=== PATIENT | female | born 1945 | race Caucasian/White ===

== ENCOUNTER 2016-09-18 11:42 | Emergency (ER) | payer MEDICARE, OTHER ==
[2016-09-18] MEDS ORDERED: Pantoprazole 40 MG Vial IVPUSH ONE (12:05)
[2016-09-18] MEDS ORDERED: Ondansetron 4 MG/2 ML SDV IVPUSH PRN (12:05)
[2016-09-18] MEDS ORDERED: Lactated Ringers 1,000 ML IV SCH (12:15)
--- NOTE | 2016-09-18 12:17 | EDM.PDOC ---
ED HPI GENERAL MEDICAL PROBLEM - General Chief Complaint: General Stated Complaint: nausea, dry heaves, headache Time Seen by Provider: 09/18/16 11:59 Source of Information: Reports: Patient, EMS History Limitations: Reports: No limitations - History of Present Illness INITIAL COMMENTS - FREE TEXT/NARRATIVE: Patient presents to the ER with complaints of generalized malaise, headache, sore throat and heartburn. Patient has been feeling weak. Feels she is dehydrated. Had influenza in August and hasn't felt good since then. She denies fever today. Has had dry heaves but no vomiting. No appetite. Was in to see Dr. Ayon yesterday with same complaints only headache has gotten worse. She did have labs and chest xray and EKG yesterday. Was told URI and given Rocephin and Depo Medrol. Started on a Zpack. Did take that on an empty stomach today and wonders if that caused the nausea. Onset: gradual Duration: Week(s): Location: Reports: head, chest, abdomen Quality: Reports: Ache Severity: severe Improves with: Reports: Rest Associated Symptoms: Reports: cough, headaches, loss of appetite, nausea/ vomiting, weakness. Denies: confusion, chest pain, shortness of breath Treatments TARGETING ACQUISITION OFFICER: Reports: Acetaminophen, Other medication(s) Other Treatments TARGETING ACQUISITION OFFICER: injections and zithromax Headache Pain Score (Numeric/FACES): 10 - Related Data Allergies Allergy/AdvReac Type Severity Reaction Status Date / Time hydrocodone Allergy Nausea Verified 09/18/16 11:48 iopamidol [From Isovue-M] Allergy Rash Verified 09/18/16 11:48 lansoprazole Allergy Hypertensio Verified 09/18/16 11:48 n Sulfa (Sulfonamide Allergy Rash Verified 09/18/16 11:48 Antibiotics) Home Meds: Home Meds Aspirin [Ecotrin] 81 mg PO DAILY 02/14/14 [History] Omeprazole [priLOSEC OTC] 20 mg PO DAILY 07/21/14 [History] Azithromycin [Zithromax] 250 mg PO DAILY 09/18/16 [History] Levothyroxine Sodium [Synthroid] 125 mcg PO DAILY 09/18/16 [History] Past Medical History - History Comment History Comment: see nurses notes for PMH Social & Family History - Tobacco Use Smoking Status *Q: Never Smoker Second Hand Smoke Exposure: Yes - Alcohol Use Days Per Week of Alcohol Use: 0 - Recreational Drug Use Recreational Drug Use: No ED ROS GENERAL - Review of Systems Review Of Systems: See Below Constitutional: Reports: chills, malaise, weakness, fatigue, decreased appetite. Denies: fever HEENT: Reports: Rhinitis, Throat pain. Denies: Ear discharge, Ear pain, Sinus problem, Vertigo Respiratory: Reports: Cough. Denies: Shortness of Breath, Wheezing Cardiovascular: Denies: Chest pain, Edema, Lightheadedness Endocrine: Reports: fatigue GI/Abdominal: Reports: Nausea. Denies: Abdominal pain, Constipation, Diarrhea, Vomiting : Reports: no symptoms Musculoskeletal: Reports: no symptoms Skin: Reports: no symptoms Neurological: Reports: Headache Psychiatric: Reports: No symptoms ED EXAM, GENERAL - Physical Exam Exam: See Below Exam Limited By: No limitations General Appearance: alert, WD/WN, no apparent distress Ears: normal external exam, normal TMs Nose: normal inspection, normal mucosa, no blood Throat/Mouth: Normal inspection, Normal oropharynx Head: normocephalic Neck: normal inspection, supple, non-tender Respiratory/Chest: no respiratory distress, lungs clear, normal breath sounds Cardiovascular: regular rate, rhythm, no edema GI/Abdominal: normal bowel sounds, soft, non tender Extremities: normal inspection, normal capillary refill Neurological: alert, oriented Psychiatric: normal affect, normal mood Skin Exam: Warm, Dry Course - Vital Signs Last Recorded V/S: Last Vital Signs Temp 98.8 F 09/18/16 15:00 Pulse 76 09/18/16 15:00 Resp 20 09/18/16 15:00 BP 142/71 H 09/18/16 15:00 Pulse Ox 96 09/18/16 15:00 - Orders/Labs/Meds Orders: Active Orders 24 hr Category Date Time Status Lactated Ringers [Ringers, Lactated] 1,000 ml Med 09/18/16 12:15 Active IV ASDIRECTED Ondansetron [Zofran] Med 09/18/16 12:05 Active 4 mg IVPUSH Q6H PRN Medication Orders Lactated Ringer's (Ringers, Lactated) 1,000 mls @ 250 mls/hr IV ASDIRECTED NAT Last Admin: 09/18/16 12:27 Dose: 250 mls/hr Ondansetron HCl (Zofran) 4 mg IVPUSH Q6H PRN PRN Reason: Nausea Last Admin: 09/18/16 12:22 Dose: 4 mg Labs: Laboratory Tests 09/18/16 09/18/16 Range/Units 12:07 12:15 WBC 9.9 (5.0-10.0) 10^3/uL RBC 4.17 (4.00-5.50) 10^6/uL Hgb 13.0 (12.0-16.0) g/dL Hct 39.4 (37.0-47.0) % MCV 94.5 H (82.0-94.0) fL MCH 31.2 (27.0-32.0) pg MCHC 33.0 (33.0-38.0) g/dL RDW Coeff of Susan 13.0 (11.0-15.0) % Plt Count 315 (150-400) 10^3/uL Neut % (Auto) 82.5 (35-85) % Lymph % (Auto) 9.1 L (10-55) % [place] % (Auto) 8.4 (0-16) % Eos % (Auto) 0 (0-5) % Baso % (Auto) 0 (0-3) % Neut # 8.21 H (1.80-7.00) 10^3/uL Lymph # 0.90 L (1.00-4.80) 10^3/uL [place] # 0.83 H (0.00-0.80) 10^3/uL Eos # 0.00 (0.00-0.45) 10^3/uL Baso # 0.00 10^3/uL Sodium 140 (136-145) mEq/L Potassium 3.7 (3.5-5.0) mEq/L Chloride 106 (98-106) mEq/L Carbon Dioxide 21 (21-32) mmol/L BUN 23 H (7-18) mg/dL Creatinine 0.7 (0.6-1.0) mg/dL Est Cr Clr Drug Dosing 54.01 mL/min Estimated GFR (MDRD) > 60 (>=60) mL/min Glucose 133 H D (75-99) mg/dL Calcium 9.0 (8.4-10.1) mg/dL C-Reactive Protein 1.8 H (0.2-0.8) mg/dL Meds: Medications Generic Name Dose Route Start Last Admin Trade Name Freq PRN Reason Stop Dose Admin Lactated Ringer's 1,000 mls @ 250 mls/hr 09/18/16 12:15 09/18/16 12:27 Ringers, Lactated IV 250 mls/hr ASDIRECTED NAT Administration Ondansetron HCl 4 mg 09/18/16 12:05 09/18/16 12:22 Zofran IVPUSH 4 mg Q6H PRN Administration Nausea Discontinued Medications Generic Name Dose Route Start Last Admin Trade Name Freq PRN Reason Stop Dose Admin Acetaminophen 650 mg 09/18/16 12:30 09/18/16 12:37 Tylenol PO 09/18/16 12:31 650 mg NOW ONE Administration Ketorolac Tromethamine 30 mg 09/18/16 12:52 09/18/16 12:55 Toradol IVPUSH 09/18/16 12:53 30 mg ONETIME ONE Administration Pantoprazole Sodium 40 mg 09/18/16 12:05 09/18/16 12:18 Protonix Iv IVPUSH 09/18/16 12:06 40 mg ONETIME ONE Administration - Re-Assessments/Exams Free Text/Narrative Re-Assessment/Exam: 09/18/16 12:45 Patient's nausea is improved. However, headache persists. Will given IV Toradol, IV fluids over the next few hours and possibly discharge home at that time. Reassures that labs are improved from yesterday. 09/18/16 15:24 Patient is feeling better. Departure - Departure Time of Disposition: 15:25 Disposition: Home, Self-Care 01 Condition: fair Clinical Impression: URI (upper respiratory infection) Forms: ED Department Discharge Additional Instructions: 1. Rest 2. Push fluids 3. Finish Zithromax 4. Tylenol or ibuprofen for fever or discomfort. 5. Follow up if any ongoing concern - My Orders Last 24 Hours: My Active Orders 09/18/16 12:05 Ondansetron [Zofran] 4 mg IVPUSH Q6H PRN 09/18/16 12:15 Lactated Ringers [Ringers, Lactated] 1,000 ml IV ASDIRECTED - Assessment/Plan Last 24 Hours: My Active Orders 09/18/16 12:05 Ondansetron [Zofran] 4 mg IVPUSH Q6H PRN 09/18/16 12:15 Lactated Ringers [Ringers, Lactated] 1,000 ml IV ASDIRECTED
[2016-09-18 12:29] LABS: CHLORIDE,CL 106 mEq/L (98-106); SODIUM,NA 140 mEq/L (136-145)
[2016-09-18] MEDS ORDERED: Acetaminophen 325 MG Tab PO ONE (12:30)
[2016-09-18] MEDS ORDERED: Ketorolac 30 MG/ML SDV IVPUSH ONE (12:52)
[2016-09-18 15:05] VITALS: BP 142/71
== END 2016-09-18 15:45 | disposition home or self-care (01) ==
LOC: CC.ED 11:42
DX: J06.9 Acute upper respiratory infection, unspecified (principal); Z79.899 Other long term (current) drug therapy; Z88.2 Allergy status to sulfonamides; Z88.8 Allergy status to other drugs, medicaments and biological substances
CPT/HCPCS: 36415; 80048; 85025; 86140; 96361; 96374; 96375; 99284; A9270; C9113; J1885; J2405; J7120

== ENCOUNTER → 2016-10-25 | Day surgery (SDC) | payer MEDICARE, OTHER ==
[~2016-10-25] MED LIST: Lactated Ringers 1,000 ML IV SCH; Propofol 200 MG/20 ML SDV IV ONE
[2016-10-25 11:26] VITALS: BP 160/71
--- NOTE | 2016-10-28 06:59 | OR ---
DATE OF OPERATION: 10/25/2016 PREOPERATIVE DIAGNOSIS: EPIGASTRIC PAIN, GASTROESOPHAGEAL REFLUX DISEASE. POSTOPERATIVE DIAGNOSIS: EPIGASTRIC PAIN, GASTROESOPHAGEAL REFLUX DISEASE. SURGEON: Adolph Ayon MD PROCEDURE: EGD WITH BIOPSIES X4, JAYSON. ANESTHESIA: [employer] OFFICER due to chronic reflux and anxiety. COMPLICATIONS: None. FINDINGS: 1. Full-length EGD. 2. Diffuse gastritis with multiple erosions. RECOMMENDATIONS: The patient will be continued on proton pump therapy and Carafate. INDICATIONS: The patient was seen by Dr. Zafar for epigastric pain and GERD. He sent her for EGD. DESCRIPTION OF PROCEDURE: The patient was prepped and draped, placed in the left lateral decubitus position. A lubricated Olympus gastroscope inserted and easily advanced into the esophagus. Esophageal lining was benign in its entire course. The Z-line was crisp and sharp at 39 cm. No distal esophagitis, stricturing, or ulcerations were seen. No Perla's changes seen. No obvious reflux. The scope was advanced into the stomach through the pylorus and into the third portion of the duodenum. The duodenal bulb, second and third portion of duodenum were unremarkable. The scope was brought back into the stomach and retroflexed. The upper fundus did show some signs of chronic gastritis. Cardia portion of the stomach was benign. Upon straightening, thorough evaluation of the rest of the fundus and antrum showed diffuse gastritis, most particularly in the peripyloric area of the antrum. Two biopsies of the antrum and two of the fundus were taken along with an antral CLOtest. There were no other polyps, masses, ulcerations, or bleeding sites. Air was suctioned, and the scope removed without complication. ELVIN/BRENDA /[id number]
== END ==
LOC: CC.SDS 09:30
PROVIDERS: ATTEND Family Medicine
DX: K29.50 Unspecified chronic gastritis without bleeding (principal); K31.89 Other diseases of stomach and duodenum; I10 Essential (primary) hypertension; K21.9 Gastro-esophageal reflux disease without esophagitis; Z88.2 Allergy status to sulfonamides; Z88.8 Allergy status to other drugs, medicaments and biological substances; Z79.82 Long term (current) use of aspirin; Z79.899 Other long term (current) drug therapy; E87.6 Hypokalemia; Z90.710 Acquired absence of both cervix and uterus; Z98.890 Other specified postprocedural states
CPT/HCPCS: 43239; 87081; 88305; 88342; J2704; J7120; 00740

== ENCOUNTER 2017-04-07 14:46 | Observation (INO) | payer MEDICARE, OTHER ==
[2017-04-07] MEDS ORDERED: Temazepam 15 MG Cap PO PRN (14:56)
[2017-04-07] MEDS ORDERED: Sodium Chloride 0.9% 10 ML Syringe FLUSH PRN (14:56)
[2017-04-07] MEDS ORDERED: Acetaminophen 325 MG Tab PO PRN (14:56)
[2017-04-07] MEDS ORDERED: Pantoprazole 40 MG Vial IVPUSH ONE (14:56)
[2017-04-07 15:45] LABS: CHLORIDE,CL 106 mEq/L (98-106); SODIUM,NA 141 mEq/L (136-145)
[2017-04-07] MEDS ORDERED: Aspirin 325 MG Tab PO PRN (19:55)
[2017-04-08] MEDS ORDERED: LEVOTHYROXINE 112 MCG PO SCH (07:00)
[2017-04-08] MEDS ORDERED: Enoxaparin 40 MG/0.4 ML Syringe SUBCUT SCH (08:00)
[2017-04-08] MEDS ORDERED: Aspirin 325 MG Tab.EC PO PRN (08:15)
[2017-04-08] MEDS ORDERED: Iopamidol 755 Mg/ML 100 ML Bottle IVPUSH ONE (08:37)
--- NOTE | 2017-04-08 11:41 | PCM.DCSUM1 ---
Discharge Summary - Hospital Course Free Text/Narrative:: Patient was admitted yesterday with anterior chest pain. Had a near-syncopal episode 2 weeks ago. Admits had been feeling increased fatigue, feels she has been losing hair and has lost weight. 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 Does not feel that has caused that much stress in her life but also feels her heartburn has been worse. Admitted for cardiac work up. - Discharge Data Discharge Date: 04/08/17 Discharge Disposition: Home, Self-Care 01 Condition: Good - Patient Summary/Data Complications: none Hospital Course: Patient continues to have left sided abdominal discomfort. Feels it is better after belching and "probably related to her GERD". Has been taking Protonix at home. Troponin and EKG have remained normal, CK and LDH mildly elevated. Is tender with palpation to left chest wall. D-Dimer was slightly elevated so a CT scan of her chest was done and ruled out a PE. Does have small nodules in her lung that will need to be followed. Dr. ayon aware. Will discharge home on her Protonix and add Carafate. Follow up with Dr. Ayon next week. - Patient Instructions Diet: Regular Diet as Tolerated Activity: As Tolerated - Discharge Plan Prescriptions/Med Rec: Pantoprazole [ProTONIX] 40 mg PO ACBREAKFAST #30 tab.cr Sucralfate [Carafate] 1 gm PO TIDAC #42 tablet Home Medications: Home Meds Levothyroxine Sodium [Synthroid] 112 mcg PO ACBREAKFAST 04/07/17 [History] Pantoprazole [ProTONIX] 40 mg PO ACBREAKFAST #30 tab.cr 04/08/17 [Rx] Sucralfate [Carafate] 1 gm PO TIDAC #42 tablet 04/08/17 [Rx] Referrals: Adolph Ayon MD [Primary Care Provider] - (Follow up next week with Dr. Ayon ) - Discharge Summary/Plan Comment DC Time >30 min.: No - General Info Date of Service: 04/08/17 Admission Dx/Problem (Free Text: Chest Pain Functional Status: Reports: Pain Controlled, Tolerating Diet, Ambulating - Review of Systems General: Denies: Fever, Weakness, Fatigue HEENT: Reports: No Symptoms Pulmonary: Reports: Pleuritic Chest Pain, Cough. Denies: Shortness of Breath, Wheezing Cardiovascular: Denies: Palpitations, Edema, Lightheadedness Gastrointestinal: Reports: Other (reflux/heartburn). Denies: Abdominal Pain, Nausea, Vomiting Genitourinary: Reports: No Symptoms Musculoskeletal: Reports: No Symptoms Skin: Reports: No Symptoms Neurological: Reports: No Symptoms - Patient Data Vitals - Most Recent: Last Vital Signs Temp 97.2 F 04/08/17 08:00 Pulse 58 L 04/08/17 08:00 Resp 16 04/08/17 08:00 BP 150/67 H 04/08/17 08:00 Pulse Ox 100 04/08/17 08:00 Weight - Most Recent: 153 lb Lab Results - Last 24 hrs: Laboratory Results - last 24 hr 04/07/17 04/07/17 04/07/17 Range/Units 14:56 15:31 15:31 WBC 7.9 (5.0-10.0) 10^3/uL RBC 4.00 (4.00-5.50) 10^6/uL Hgb 12.2 (12.0-16.0) g/dL Hct 38.2 (37.0-47.0) % MCV 95.5 H (82.0-94.0) fL MCH 30.5 (27.0-32.0) pg MCHC 31.9 L (33.0-38.0) g/dL RDW Coeff of Susan 13.6 (11.0-15.0) % Plt Count 318 (150-400) 10^3/uL Neut % (Auto) 63.8 (35-85) % Lymph % (Auto) 23.6 (10-55) % [place] % (Auto) 9.6 (0-16) % Eos % (Auto) 2.7 (0-5) % Baso % (Auto) 0.3 (0-3) % Neut # (Auto) 5.06 (1.80-7.00) 10^3/uL Lymph # (Auto) 1.87 (1.00-4.80) 10^3/uL [place] # (Auto) 0.76 (0.00-0.80) 10^3/uL Eos # (Auto) 0.21 (0.00-0.45) 10^3/uL Baso # (Auto) 0.02 10^3/uL D-Dimer, Quantitative 0.55 H (0.00-0.50) Sodium 141 (136-145) mEq/L Potassium 3.7 (3.5-5.0) mEq/L Chloride 106 (98-106) mEq/L Carbon Dioxide 25 (21-32) mmol/L BUN 19 H (7-18) mg/dL Creatinine 0.7 (0.6-1.0) mg/dL Est Cr Clr Drug Dosing 53.26 mL/min Estimated GFR (MDRD) > 60 (>=60) mL/min Glucose 91 (75-99) mg/dL Calcium 8.9 (8.4-10.1) mg/dL Lactate Dehydrogenase (100-190) U/L Creatine Kinase (21-215) U/L Troponin I < 0.017 (0.00-0.06) ng/mL 04/08/17 Range/Units 08:18 WBC (5.0-10.0) 10^3/uL RBC (4.00-5.50) 10^6/uL Hgb (12.0-16.0) g/dL Hct (37.0-47.0) % MCV (82.0-94.0) fL MCH (27.0-32.0) pg MCHC (33.0-38.0) g/dL RDW Coeff of Susan (11.0-15.0) % Plt Count (150-400) 10^3/uL Neut % (Auto) (35-85) % Lymph % (Auto) (10-55) % [place] % (Auto) (0-16) % Eos % (Auto) (0-5) % Baso % (Auto) (0-3) % Neut # (Auto) (1.80-7.00) 10^3/uL Lymph # (Auto) (1.00-4.80) 10^3/uL [place] # (Auto) (0.00-0.80) 10^3/uL Eos # (Auto) (0.00-0.45) 10^3/uL Baso # (Auto) 10^3/uL D-Dimer, Quantitative (0.00-0.50) Sodium (136-145) mEq/L Potassium (3.5-5.0) mEq/L Chloride (98-106) mEq/L Carbon Dioxide (21-32) mmol/L BUN (7-18) mg/dL Creatinine (0.6-1.0) mg/dL Est Cr Clr Drug Dosing mL/min Estimated GFR (MDRD) (>=60) mL/min Glucose (75-99) mg/dL Calcium (8.4-10.1) mg/dL Lactate Dehydrogenase 210 H (100-190) U/L Creatine Kinase 245 H (21-215) U/L Troponin I < 0.017 (0.00-0.06) ng/mL Med Orders - Current: Current Medications Acetaminophen (Tylenol) 650 mg PO Q4H PRN PRN Reason: Pain (Mild 1-3)/fever Aspirin (Ecotrin) 650 mg PO Q4H PRN PRN Reason: Headache/Pain Enoxaparin Sodium (Lovenox) 40 mg SUBCUT Q24H [facility] Last Admin: 04/08/17 09:20 Dose: Not Given Levothyroxine Sodium (Levothyroxine) 112 mcg PO ACBREAKFAST [facility] Last Admin: 04/08/17 06:12 Dose: 112 mcg Sodium Chloride (Saline Flush) 10 ml FLUSH ASDIRECTED PRN PRN Reason: Keep Vein Open Temazepam (Restoril) 15 mg PO BEDTIME PRN PRN Reason: Sleep Discontinued Medications Aspirin (Aspirin) 650 mg PO Q4H PRN PRN Reason: Headache/Pain Last Admin: 04/07/17 20:14 Dose: 650 mg Iopamidol (Isovue-370 (76%)) 100 ml IVPUSH ONETIME ONE Stop: 04/08/17 08:38 Last Admin: 04/08/17 09:21 Dose: Not Given Pantoprazole Sodium (Protonix Iv) 40 mg IVPUSH ONETIME ONE Stop: 04/07/17 14:57 Last Admin: 04/07/17 16:20 Dose: 40 mg - Exam General: Reports: Alert, Oriented HEENT: Reports: Mucous Membr. Moist/[place] Neck: Reports: Supple Lungs: Reports: Clear to Auscultation, Normal Respiratory Effort Cardiovascular: Reports: Regular Rate, Regular Rhythm GI/Abdominal Exam: Normal Bowel Sounds, Soft, Non-Tender Extremities: Other (tender to anterior chest wall with palpation) Skin: Reports: Warm, Dry Neurological: Reports: No New Focal Deficit Psy/Mental Status: Reports: Alert, Normal Affect, Normal Mood *Q Meaningful Use (DIS) - VTE *Q VTE Criteria *Q: - Stroke *Q Stroke Criteria *Q: - AMI *Q AMI Criteria *Q:
[2017-04-08 12:08] VITALS: BP 144/66
== END 2017-04-08 12:15 | disposition home or self-care (01) ==
LOC: CC.MS 14:46 → UNDOADMOB 14:46 → CC.MS 14:56
PROVIDERS: ADMIT Family Medicine; ATTEND Family Medicine
DX: R10.9 Unspecified abdominal pain (principal); K21.9 Gastro-esophageal reflux disease without esophagitis; E03.9 Hypothyroidism, unspecified; Z79.82 Long term (current) use of aspirin; Z79.899 Other long term (current) drug therapy; Z88.2 Allergy status to sulfonamides; Z88.8 Allergy status to other drugs, medicaments and biological substances; Z90.710 Acquired absence of both cervix and uterus; Z98.890 Other specified postprocedural states
CPT/HCPCS: 36415; 71020; 71275; 80048; 82550; 83615; 84484; 85025; 85379; 93005; 96374; A9270; C9113; G0378; Q9967; 93010; 99217; 99220

== ENCOUNTER → 2017-11-27 | Day surgery (SDC) | payer MEDICARE, OTHER ==
[~2017-11-27] MED LIST changes: +Lidocaine 4% Top Soln 5 ML LTA Syringe ONE; +Lidocaine 4% Top Soln 5 ML LTA Syringe TOP ONE; +Meperidine PF 50 MG/ML Syringe IV ONE; +Meperidine PF 50 MG/ML Syringe ONE; +Midazolam 1 MG/ML 2 ML SDV ONE; -Propofol 200 MG/20 ML SDV IV ONE
[2017-11-27 13:42] VITALS: BP 131/70
--- NOTE | 2017-11-27 16:39 | OR ---
DATE OF OPERATION: 11/27/2017 PREOPERATIVE DIAGNOSIS: 1. GASTROESOPHAGEAL REFLUX DISEASE. 2. EPIGASTRIC PAIN. POSTOPERATIVE DIAGNOSIS: 1. GASTROESOPHAGEAL REFLUX DISEASE. 2. EPIGASTRIC PAIN. SURGEON: Adolph Ayon MD PROCEDURE PERFORMED: EGD with biopsies x3, JAYSON. ANESTHESIA: Conscious sedation. COMPLICATIONS: None. SPECIMEN: 1. Antral JAYSON. 2. Antral biopsy x1. 3. Upper fundal biopsy x2. FINDINGS: 1. Full-length EGD. 2. Heel ulcer, distal antrum in the german pyloric region. 3. Hemorrhagic gastritis acute, upper fundus, and cardia. 4. No hiatal hernia or spontaneous reflux visualized and no distal esophagitis, stricturing, ulceration, or Perla's changes. RECOMMENDATIONS: Medical followup with Dr. Zafar. INDICATIONS: The patient has a history of chronic GERD and dyspepsia. Dr. Zafar sent her for EGD. DESCRIPTION OF PROCEDURE: The patient was prepped and draped, placed in left lateral decubitus position. A lubricated Olympus gastroscope was inserted over a bit and advanced to cricopharyngeus area and easily intubated into the esophagus. Esophageal lining was benign in its entire course. The Z-line was crisp and sharp around 39 cm. There was no hernia. No distal esophagitis, stricturing, ulceration, or Perla's changes. No spontaneous reflux seen. The scope was advanced into the stomach through the pylorus and into the second portion of the duodenum. This and the duodenal bulb were benign. The scope was brought back into the stomach and retroflexed. The upper fundus and cardia had marked hemorrhagic gastritis acute in nature. Two biopsies of the most affected area were taken. No gross ulcerations were seen. Upon straightening, the rest of the fundus and antrum were evaluated, the distal fundus and antrum were essentially benign and the peripyloric area looks like the patient has a healed ulcer there with a little bit of scar down tissue. We did a biopsy that area and a JAYSON. No other polyps, masses, or lesions were seen. Air was suctioned. Scope was removed without complication. ELVIN/BRENDA /[id number]
== END ==
LOC: CC.SDS 11:42
PROVIDERS: ATTEND Family Medicine
DX: K21.9 Gastro-esophageal reflux disease without esophagitis (principal); K29.01 Acute gastritis with bleeding; K29.50 Unspecified chronic gastritis without bleeding; B96.81 Helicobacter pylori [H. pylori] as the cause of diseases classified elsewhere; G47.00 Insomnia, unspecified; Z88.8 Allergy status to other drugs, medicaments and biological substances; Z88.2 Allergy status to sulfonamides; Z88.5 Allergy status to narcotic agent; Z79.82 Long term (current) use of aspirin; Z79.899 Other long term (current) drug therapy
CPT/HCPCS: 87081; A9270-GY; J2175; J7120

== ENCOUNTER 2021-04-04 22:45 | Emergency (ER) | payer MEDICARE, OTHER ==
[2021-04-04] MEDS ORDERED: cloNIDine 0.1 MG Tab PO SCH (23:30)
[2021-04-04 23:34] VITALS: PULSE 88
[2021-04-04 23:37] LABS: CHLORIDE,CL 105 mEq/L (98-106); SODIUM,NA 140 mEq/L (136-145)
--- NOTE | 2021-04-04 23:47 | EDM.PDOC ---
ED HPI GENERAL MEDICAL PROBLEM - General Chief Complaint: General Stated Complaint: high blood pressure Time Seen by Provider: 04/04/21 23:15 Source of Information: Reports: Patient History Limitations: Reports: No Limitations - History of Present Illness INITIAL COMMENTS - FREE TEXT/NARRATIVE: Milla is a 76 year old female who presents to ER with complaints of a headache and high blood pressure. Has had a headache off and on throughout the day. [place] somewhat "whoozy in the head" so took her blood pressure and was 213 systolic at home. Admits has been having issues with her blood pressure since February. Was placed on a blood pressure med, doesn't recall name, but was not controlling it so was switched to Lisinopril and it has been better. Dr. 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 Is currently taking Synthroid 88 mcg daily. Denies any chest pain. No shortness of breath, cough or head congestion. No nausea/vomiting or abdominal pain. No edema. No fever. Denies urinary complaints. Onset: Today Duration: Hour(s):, Waxing/Waning Location: Reports: Head Quality: Reports: Ache Severity: Moderate Improves with: Reports: Medication, Rest Associated Symptoms: Reports: Headaches. 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 Frontal Headache Pain Score (Numeric/FACES): 6 - Related Data Allergies Allergy/AdvReac Type Severity Reaction Status Date / Time lansoprazole Allergy Hypertensio Verified 04/04/21 23:37 n Sulfa (Sulfonamide Allergy Rash Verified 04/04/21 23:37 Antibiotics) hydrocodone AdvReac Nausea Verified 04/04/21 23:37 Home Meds: Home Meds Aspirin [Adult Aspirin] 81 mg PO DAILY 11/21/17 [History] Levothyroxine [Synthroid] 88 mcg PO ACBREAKFAST 04/04/21 [History] lisinopriL [Lisinopril] 10 mg PO DAILY 04/04/21 [History] Past Medical History HEENT History: Reports: Allergic Rhinitis, Impaired Vision Cardiovascular History: Reports: Other (See Below) Other Cardiovascular History: venous insufficiency Respiratory History: Reports: Bronchitis, Recurrent Gastrointestinal History: Reports: GERD REPLACER History: Reports: Musculoskeletal History: Reports: Back Pain, Chronic, Osteoarthritis, Other (See Below) Other Musculoskeletal History: Bursitis Psychiatric History: Reports: Anxiety Endocrine/Metabolic History: Reports: Hypothyroidism - Infectious Disease History Infectious Disease History: Reports: Chicken Pox, Measles - Past Surgical History HEENT Surgical History: Reports: Tonsillectomy GI Surgical History: Reports: Hernia Repair/Other Female Surgical History: Reports: Hysterectomy Musculoskeletal Surgical History: Reports: Shoulder Surgery - History Comment History Comment: see nurses notes for PMH Social & Family History - Family History Family Medical History: No Pertinent Family History - Tobacco Use Tobacco Use Status *Q: Never Tobacco User Second Hand Smoke Exposure: No - Caffeine Use Caffeine Use: Reports: None - Recreational Drug Use Recreational Drug Use: No ED ROS GENERAL - Review of Systems Review Of Systems: See Below Constitutional: Denies: Fever, Chills, Malaise, Weakness, Fatigue, Decreased Appetite HEENT: Denies: Ear Pain, Rhinitis, Sinus Problem, Throat Pain, Vision Change Respiratory: Denies: Shortness of Breath, Cough Cardiovascular: Denies: Chest Pain, Edema, Lightheadedness Endocrine: Denies: Fatigue GI/Abdominal: Denies: Abdominal Pain, Constipation, Diarrhea, Nausea, Vomiting : Denies: Dysuria Musculoskeletal: Reports: No Symptoms Skin: Reports: No Symptoms Neurological: Reports: Headache ED EXAM, GENERAL - Physical Exam Exam: See Below Exam Limited By: No Limitations General Appearance: Alert, WD/WN, No Apparent Distress Ears: Normal External Exam, Normal TMs Nose: Normal Inspection, Normal Mucosa, No Blood Throat/Mouth: Normal Inspection, Normal Oropharynx Head: Normocephalic Neck: Normal Inspection, Supple, Non-Tender, Full Range of Motion Respiratory/Chest: No Respiratory Distress, Lungs Clear, Normal Breath Sounds Cardiovascular: Regular Rate, Rhythm, No Edema GI/Abdominal: Normal Bowel Sounds, Soft, Non-Tender Extremities: Normal Inspection, No Pedal Edema Neurological: Alert, Oriented, CN II-XII Intact, Normal Cognition, Normal Gait, Normal Reflexes, No Motor/Sensory Deficits Skin Exam: Warm, Dry #1 Interpretation EKG Date: 04/04/21 Rhythm: NSR [place]: Normal P-Wave: Enlarged QRS: Normal ST-T: Normal QT: Normal Course - Vital Signs Last Recorded V/S: Last Vital Signs Temp 96.4 F L 04/04/21 22:55 Pulse 88 04/04/21 23:34 Resp 20 04/04/21 23:34 BP 208/84 H 04/04/21 23:34 Pulse Ox 95 04/04/21 23:34 - Orders/Labs/Meds Orders: Active Orders 24 hr Category Date Time Status cloNIDine [Catapres] Med 04/04/21 23:30 Active 0.1 mg PO DAILY Medication Orders Clonidine HCl (Clonidine 0.1 Mg Tab) 0.1 mg PO DAILY NAT Last Admin: 04/04/21 23:33 Dose: 0.1 mg Documented by: SHAMA Labs: Laboratory Tests 04/04/21 04/04/21 04/04/21 Range/Units 23:19 23:19 23:19 WBC 9.3 (4.0-11.0) 10^3/uL RBC 4.01 (4.00-5.50) x10^6/uL Hgb 12.9 (12.0-16.0) g/dL Hct 39.3 (37.0-47.0) % MCV 98.0 H (83.0-97.0) fL MCH 32.2 H (27.0-32.0) pg MCHC 32.8 (32.0-36.0) g/dL RDW Coeff of Susan 13.1 (11.0-15.0) % Plt Count 280 (150-400) 10^3/uL Immature Gran % (Auto) 0.4 (0.0-4.9) % Neut % (Auto) 65.2 (41-71) % Lymph % (Auto) 21.0 L (24-44) % [place] % (Auto) 10.0 (0-10) % Eos % (Auto) 3.1 (0-6) % Baso % (Auto) 0.3 (0-1) % Neut # (Auto) 6.05 (1.80-8.00) x10^3/uL Lymph # (Auto) 1.95 (0.60-5.00) 10^3/uL [place] # (Auto) 0.93 (0.00-1.50) 10^3/uL Eos # (Auto) 0.29 (0.00-1.50) 10^3/uL Baso # (Auto) 0.03 (0.00-0.50) 10^3/uL Immature Gran # (Auto) 0.04 (0.00-0.49) 10^3/uL PT 10.8 (9.7-12.3) SEC INR 0.99 (0.92-1.18) Sodium 140 (136-145) mEq/L Potassium 3.9 (3.5-5.0) mEq/L Chloride 105 (98-106) mEq/L Carbon Dioxide 24 (21-32) mmol/L BUN 19 H (7-18) mg/dL Creatinine 0.8 (0.6-1.0) mg/dL Est Cr Clr Drug Dosing 41.63 mL/min Estimated GFR (MDRD) > 60 (>=60) mL/min Glucose 110 H (75-99) mg/dL Calcium 9.2 (8.4-10.1) mg/dL Magnesium 2.1 (1.8-2.4) mg/dL Total Bilirubin 0.4 (0.0-1.0) mg/dL AST 13 L (15-37) U/L ALT 18 (12-78) U/L Alkaline Phosphatase 134 H (46-116) U/L Lactate Dehydrogenase 174 (100-190) U/L Creatine Kinase 42 (21-215) U/L Troponin I High Sens 4.8 (<=51) pg/mL Total Protein 7.0 (6.4-8.2) g/dL Albumin 3.5 (3.4-5.0) g/dL Lipase 87 (73-393) U/L Meds: Medications Generic Name Dose Route Start Last Admin Trade Name Ghulam PRN Reason Stop Dose Admin Clonidine HCl 0.1 mg 04/04/21 23:30 04/04/21 23:33 Clonidine 0.1 Mg Tab PO 0.1 mg DAILY NAT Administration Discontinued Medications Generic Name Dose Route Start Last Admin Trade Name Fresigrid PRN Reason Stop Dose Admin Clonidine HCl 0.1 mg 04/05/21 23:06 Clonidine 0.1 Mg Tab PO 04/05/21 23:07 PREPRO ONE Clonidine HCl 0.1 mg 04/05/21 23:06 Clonidine 0.1 Mg Tab PO 04/05/21 23:07 DAILY ONE - Re-Assessments/Exams Free Text/Narrative Re-Assessment/Exam: 09/30/21 00:10 Labs are all unremarkable. Blood pressure improving with clonidine. Actually does have this med at home, took it at 3 pm this afternoon but was worried about it rising up again tonight. Currently only takes Lisinopril 10 mg daily, will have her increase that to BID and follow up with Valentin. Headache has improved. Departure - Departure Time of Disposition: 00:13 Disposition: Home, Self-Care 01 Condition: Fair Clinical Impression: Hypertensive urgency - Discharge Information *PRESCRIPTION DRUG MONITORING PROGRAM REVIEWED*: No *COPY OF PRESCRIPTION DRUG MONITORING REPORT IN PATIENT JENNIFER: No Instructions: Managing Your Hypertension Forms: ED Department Discharge Additional Instructions: 1. rest 2. Tylenol for headache 3. Increase Lisinopril to 10 mg twice a day 4. Call Valentin's office with blood pressure 2 hours after taking the am med if still high 5. Follow up with Valentin for persisting concerns. Sepsis Event Note (ED) - Evaluation Sepsis Screening Result: No Definite Risk - Focused Exam Vital Signs: Vital Signs Temp Pulse Resp BP BP Pulse Ox 04/04/21 23:34 88 20 208/84 H 95 04/04/21 23:33 204/84 H 04/04/21 22:55 96.4 F L 92 23 H 204/113 H 98 - My Orders Last 24 Hours: My Active Orders 04/04/21 23:30 cloNIDine [Catapres] 0.1 mg PO DAILY - Assessment/Plan Last 24 Hours: My Active Orders 04/04/21 23:30 cloNIDine [Catapres] 0.1 mg PO DAILY
[2021-04-05 00:38] VITALS: BP 166/93
[2021-04-05] MEDS ORDERED: cloNIDine 0.1 MG Tab PO ONE ×2 (23:06)
== END 2021-04-05 00:20 | disposition home or self-care (01) ==
LOC: CC.ED 22:45
DX: I16.0 Hypertensive urgency (principal); I10 Essential (primary) hypertension; E03.9 Hypothyroidism, unspecified; Z88.2 Allergy status to sulfonamides; Z88.5 Allergy status to narcotic agent; Z88.8 Allergy status to other drugs, medicaments and biological substances; Z79.82 Long term (current) use of aspirin; Z79.899 Other long term (current) drug therapy
CPT/HCPCS: 36415; 80053; 82550; 83615; 83690; 83735; 84484; 85025; 85610; 99283; 99284; A9270